=== PATIENT | male | born 1995 | race Asian ===

== ENCOUNTER 2018-03-06 12:51 | Emergency (ER) | payer OTHER ==
--- NOTE | 2018-03-06 14:24 | ED Physician Documentation ---
PD HPI UPPER EXT INJURY - Stated complaint Stated Complaint: Exposure - Chief complaint Chief Complaint: General - History obtained from History obtained from: Patient - History of Present Illness Location: Left, Forearm Type of injury: Puncture wound (he was using weed radha at work, in open grass near [employer] in [place], and felt object fly up and strike his forearm. Superficial abrasion without bleeding. He saw the object was used needle/ syringe. No noted blood. The needle tip was bent. He was concerned about getting poked with used needle and here for evaluation.) Where injury occurred: Work Timing - onset: How many hours ago (1 hour [employer]), Today Timing - details: Abrupt onset Worsened by: No: Palpating Associated symptoms: No: Weakness, Numbness Similar symptoms before: Has not had sx before Recently seen: Not recently seen Review of Systems Skin: denies: Laceration (s) Neurologic: denies: Focal weakness, Numbness PD PAST MEDICAL HISTORY - Past Medical History Past Medical History: No Cardiovascular: None Respiratory: None Neuro: None Endocrine/Autoimmune: None - Past Surgical History Past Surgical History: Yes Ortho: Other - Present Medications Home Medications: Ambulatory Orders Medication Instructions Recorded Confirmed lamiVUDine/ZIDOVUDINE [Combivir] 1 each PO BID #56 tablet 03/06/18 - Allergies Allergies/Adverse Reactions: Allergies Allergy/AdvReac Type Severity Reaction Status Date / Time aspirin Allergy Edema Verified 03/06/18 12:59 - Social History Does the pt smoke?: Yes Smoking Status: Current every day smoker Does the pt drink ETOH?: No Does the pt have substance abuse?: Yes Substance Use and Type: Marijuana - Immunizations Immunizations are current?: No Immunizations: TDAP >10years/unknown, Other immun current PD ED PE NORMAL - Vitals Vital signs reviewed: Yes - General General: Alert and oriented X 3, No acute distress, Well developed/nourished, Other (the needle brought with him is insulin syringe size with small short needle that is bent. No fluid in the bore and it looks dirty (ground dirt, like had been on ground awhile).) - Neck Neck: Supple, no meningeal sign, No adenopathy - Derm Derm: Normal color, Warm and dry - Extremities Extremities: Other (superficial abrasion left forearm without bleeding. No puncture site per se. ) Results - Vitals Vitals: Vital Signs - 24 hr 03/06/18 03/06/18 12:56 15:00 Temperature 36.4 C L 36.9 C Heart Rate 83 79 Respiratory 18 16 Rate Blood Pressure 149/82 H 120/74 O2 Saturation 98 98 Oxygen O2 Source Room air PD MEDICAL DECISION MAKING - ED course Complexity details: reviewed results (ordered epxosure panel from order sets.), considered differential (very low risk exposure for blood borne pathogens; patient very concerned and would like HIV prophylaxis. He has had HBV vaccine in the past. ), d/w patient - Sepsis Event Vital Signs: Vital Signs - 24 hr 03/06/18 03/06/18 12:56 15:00 Temperature 36.4 C L 36.9 C Heart Rate 83 79 Respiratory 18 16 Rate Blood Pressure 149/82 H 120/74 O2 Saturation 98 98 Oxygen O2 Source Room air Departure - Departure Disposition: 01 Home, Self Care Clinical Impression: Needlestick injury due to hypodermic needle Condition: Stable Record reviewed to determine appropriate education?: Yes Instructions: ED Body Fluid Exp Not HC Worker Follow-Up: [facility] [Provider Group] [facility] [Provider Group] Prescriptions: lamiVUDine/ZIDOVUDINE [Combivir] 1 each PO BID #56 tablet Comments: Take the Combivir antiviral medication twice daily for the next 4 weeks. Call local medical group for follow-up appointment for 3-4 weeks from now for retesting to ensure no HIV infection. You had received your hepatitis B vaccines in the past so you are safe from that. There is no preventative medication for hepatitis C. As we discussed your exposure is very very low risk for body fluid infection and that should provide some peace of mind. Discharge Date/Time: 03/06/18 15:00
[2018-03-06] MEDS ORDERED: lamiVUDine/ZIDOVUDINE 150 MG/300 MG TABLET PO STA (14:45)
[2018-03-06 15:02] VITALS: BP 120/74
[2018-03-07 13:22] LABS: HEPATITIS B SURFACE AB QN IMM <5 mIU/mL (> OR = 10); HEPATITIS C ANTIBODY NON-REACTIVE (NON-REACTIVE)
[2018-03-07 14:13] LABS: HIV AG/AB 4TH GEN NON-REACTIVE (NON-REACTIVE)
== END 2018-03-06 15:00 | disposition home or self-care (01) ==
LOC: ED 12:51 → MERGE 12:51 → ED 15:00
DX: Z77.21 Contact with and (suspected) exposure to potentially hazardous body fluids (principal); S50.812A Abrasion of left forearm, initial encounter; W22.8XXA Striking against or struck by other objects, initial encounter; Y93.H2 Activity, gardening and landscaping; Y92.511 Restaurant or cafe as the place of occurrence of the external cause; Y99.0 Civilian activity done for income or pay; F17.200 Nicotine dependence, unspecified, uncomplicated
CPT/HCPCS: 1040M; 36415; 86317; 86803; 87389; 99283